=== PATIENT | female | born 1965 | race Caucasian/White ===

== ENCOUNTER → 2017-06-05 | Outpatient (CLI) | payer BC ==
[2016-02-18 12:46] VITALS: BP 141/96
[~2017-06-05] MED LIST: ACET325T9 PO; ALPR0.5T PO; ASPI81TA44 PO; DEXL60CA2 PO; LEVO25TA55 PO; LEVO50TA5 PO; LORA-434 PO; OMEP40CA5 PO; ONDA4TAB10 PO; PANT40TA3 PO; SUCR1TAB PO; VENL75CA PO
--- NOTE | 2017-06-05 09:23 | RAD ---
Indication intermittent pelvic pain. Injury to the pelvis from a recent fall. Axial images through the abdomen and pelvis were obtained. Study is limited. No IV or gastrointestinal contrast was administered. Note is made of a previous examination 02/17/2016. The lung bases are clear. There is fatty infiltration of the liver. The gallbladder is grossly normal. The spleen appears unremarkable. No pancreatic abnormality is seen. No adrenal or renal pathology is seen. IVC filter is noted. No acute finding is seen in the abdomen. In the pelvis no focal mass or inflammatory process is seen. Best demonstrated on the sagittal reformatted images is a slightly distracted fracture involving the pelvis at the sacrococcygeal junction. IMPRESSION: No acute finding seen in the abdomen or pelvis. Fatty infiltration of the liver. Minimally distracted pelvic fracture at the sacrococcygeal junction. PQRS Compliance Statement: One or more of the following individualized dose reduction techniques were utilized for this examination: 1. Automated exposure control 2. Adjustment of the mA and/or kV according to patient size 3. Use of iterative reconstruction technique
== END | disposition home or self-care (01) ==
LOC: CT 07:57
PROVIDERS: ATTEND Physician Assistant Medical
DX: K76.0 Fatty (change of) liver, not elsewhere classified (principal); S32.89XA Fracture of other parts of pelvis, initial encounter for closed fracture; X58.XXXA Exposure to other specified factors, initial encounter; Y93.89 Activity, other specified; Y92.89 Other specified places as the place of occurrence of the external cause; Y99.8 Other external cause status
CPT/HCPCS: 74176

== ENCOUNTER → 2020-10-16 | Outpatient (CLI) | payer BC ==
[2016-02-18 12:46] VITALS: BP 141/96
[~2020-10-16] MED LIST changes: -ASPI81TA44 PO; +ASPI81TA59 PO; +LORA-254 PO; -LORA-434 PO; +OMEP40CA45 PO; -OMEP40CA5 PO
--- NOTE | 2020-10-16 16:31 | RAD ---
Bilateral carotid arterial duplex study 10/16/2020 CLINICAL HISTORY: Carotid arterial disease. TECHNIQUE: Using a combination of real-time ultrasound imaging and color-flow and pulse Doppler imagi ng techniques, duplex evaluation of the common carotid arteries, carotid bifurcations and internal ca rotid arteries along with the vertebral arteries within the neck was performed. Multiple images were obtained. Stenosis calculations for carotid ultrasound are based on validated velocity measurements which are n oted to correlate with the NASCET methodology. FINDINGS: Very mild atheromatous/atherosclerotic plaque formation is seen involving both carotid bifu rcations and proximal internal carotid arteries bilaterally. The peak systolic velocities are not claudio vated. No hemodynamically significant stenosis is seen. Both vertebral arteries demonstrate normal antegrade flow. IMPRESSION: Very mild atheromatous/atherosclerotic plaque formation is seen involving both carotid bi furcations. No hemodynamically significant stenosis or area of occlusion is seen. Electronically signed by: Cl Dwyer MD (10/16/2020 4:29 PM) [id number]
== END ==
LOC: US 09:01
PROVIDERS: ATTEND Physician Assistant Medical
DX: I65.23 Occlusion and stenosis of bilateral carotid arteries (principal)
CPT/HCPCS: 93880

== ENCOUNTER → 2021-11-18 | Outpatient (CLI) | payer BC ==
[2016-02-18 12:46] VITALS: BP 141/96
[~2021-11-18] MED LIST changes: -OMEP40CA45 PO; +OMEP40CA7 PO
--- NOTE | 2021-11-18 13:19 | RAD ---
EXAM: Maxillofacial bone CT without contrast. HISTORY: Recurrent sinusitis. TECHNIQUE: Computed tomographic images of the axial facial bones were obtained without contrast. *One or more of the following individualized dose reduction techniques were utilized for this examina tion: 1. Automated exposure control. 2. Adjustment of the mA and/or kV according to patient size. 3. Use of iterative reconstruction technique. COMPARISON: None. FINDINGS: There are maxillary sinusotomy/antrostomy and ethmoidectomy changes. There is mild ethmoid and maxillary sinus mucosal thickening. There is rightward nasal septal deviation. There is no sinus air-fluid level or opacification. The orbits are unremarkable. The mastoid air cells are unremarkable . There is no suspicious calvarial lesion. Evaluation of the brain demonstrate no mass effect or midl ine shift. There is no hydrocephalus. IMPRESSION: 1. Maxillary sinusotomy/antrostomy and ethmoidectomy changes. 2. Mild maxillary and ethmoid sinus mucosal thickening. 3. Nasal septal deviation. Electronically signed by: Flory Cardona MD (11/18/2021 1:16 PM) [facility]
== END ==
LOC: CT 12:54
PROVIDERS: ATTEND Otolaryngology
DX: J34.2 Deviated nasal septum (principal); J32.0 Chronic maxillary sinusitis; J32.2 Chronic ethmoidal sinusitis; Z90.89 Acquired absence of other organs
CPT/HCPCS: 70486

== ENCOUNTER → 2022-01-07 | Outpatient (CLI) | payer BC ==
[2016-02-18 12:46] VITALS: BP 141/96
--- NOTE | 2022-01-07 12:46 | RAD ---
US THYROID History: Enlarged thyroid Comparison: None. Technique: Multiple grayscale and color Doppler images of the thyroid gland were obtained. Findings: Right thyroid lobe: 5.1 x 1.6 x 1.8 cm. Left thyroid lobe: 4.3 x 1.5 x 1.6 cm. Isthmus: 0.4 cm. Relatively homogeneous thyroid without hyperemia. No focal nodules. IMPRESSION: 1. Unremarkable thyroid ultrasound. ACR Thyroid Imaging, Reporting And Data System (TI-RADS): White Paper Of The ACR TI-RADS Committee. J ournal of the [employer], volume 14, issue 5, pages 587-595 (December 2016). Electronically signed by: Jacky Leblanc MD (01/07/2022 12:44 PM) [id number]
== END ==
LOC: US 10:48
PROVIDERS: ATTEND Physician Assistant Medical
DX: E04.9 Nontoxic goiter, unspecified (principal)
CPT/HCPCS: 76536